=== PATIENT | female | born 1960 | race Asian ===

== ENCOUNTER 2017-03-31 23:11 | Emergency (ER) | payer OTHER ==
[~2017-03-31] VITALS: Ht 154.9 cm; Wt 58.2 kg
[2017-04-01] MEDS ORDERED: LIDOCAINE 2% VISCOUS 15 ML UDC MM STA (00:41)
[2017-04-01] MEDS ORDERED: DICL1TAB55 PO (00:46)
[2017-04-01] MEDS ORDERED: OMEP-110 PO (00:46)
[2017-04-01] MEDS ORDERED: ONDANSETRON 2MG/ML, 2ML ONE (00:49)
[2017-04-01] MEDS ORDERED: morphine SULFATE 10 MG/ML, 1ML ONE (00:49)
[2017-04-01] MEDS ORDERED: morphine SULFATE 10 MG/ML, 1ML IVPush PRN (01:00)
[2017-04-01] MEDS ORDERED: ALUMINUM/MAG/SIMETHICONE 30 ML UDC PO PRN (01:00)
[2017-04-01] MEDS ORDERED: ONDANSETRON 2MG/ML, 2ML IVPush ONE (01:00)
[2017-04-01 01:25] LABS: HEMATOCRIT 30.9 % (34.6-47.8); HEMOGLOBIN 10.2 g/dL (11.7-16.4); WHITE BLOOD COUNT 13.7 x10^3/uL (3.4-10)
[2017-04-01 01:37] LABS: ASPARTATE AMINO TRANSFERASE 14 U/L (15-37); BLOOD UREA NITROGEN 12 mg/dL (7-18)
[2017-04-01] MEDS ORDERED: OMNIPAQUE 350 MG/ML, 100ML BOTTLE ONE (02:16)
[2017-04-01 03:52] VITALS: BP 100/57
== END 2017-04-01 03:54 | disposition home or self-care (01) ==
LOC: ED 04-01 03:48
DX: R10.84 Generalized abdominal pain (principal); F17.200 Nicotine dependence, unspecified, uncomplicated; M19.90 Unspecified osteoarthritis, unspecified site; Z88.8 Allergy status to other drugs, medicaments and biological substances
CPT/HCPCS: 36415; 74177; 80053; 81001; 83690; 85025; 87086; 93971; 96374; 96375; 99285; J2270; J2405; Q9967